=== PATIENT | female | born 1990 | race African-American/Black ===

== ENCOUNTER 2020-01-28 13:40 | Emergency (ER) | payer OTHER, SELFPAY ==
[2020-01-29 12:15] LABS: SARS-CoV-2 MS2 Positive; SARS-CoV-2 N Gene Negative; SARS-CoV-2 S Gene Negative; SARS-CoV-2 orf1ab Negative
== END 2020-01-28 14:45 | disposition home or self-care (01) ==
LOC: ERS 13:40
DX: R19.7 Diarrhea, unspecified (principal); R51 Headache; R06.02 Shortness of breath; Z20.828 Contact with and (suspected) exposure to other viral communicable diseases
CPT/HCPCS: 87635; 99284; U0003